=== PATIENT | female | born 1990 | race Caucasian/White ===

== ENCOUNTER 2017-02-02 07:20 | Outpatient (CLI) | payer OTHER ==
[2017-02-02] MEDS ORDERED: SODIUM CHLORIDE FLUSH 0.9% 10 ML SYRINGE IVP ONE (08:47)
[2017-02-02] MEDS ORDERED: LIDOCAINE JELLY 2% 5 ML TUBE TOP ONE (08:59)
[2017-02-02] MEDS ORDERED: DEXTROSE 5%-LACTATED RINGERS 1,000 ML IV SCH (09:00)
[2017-02-02] MEDS ORDERED: LACTATED RINGERS 500 ML IV ONE (09:15)
[2017-02-02] MEDS ORDERED: LIDOCAINE JELLY 2% 5 ML TUBE TOP PRN (10:50)
[2017-02-02] MEDS ORDERED: ONDANSETRON 4 MG/2 ML VIAL IVP ONE (11:00)
== END 2017-02-02 12:45 | disposition home or self-care (01) ==
DX: O26.892 Other specified pregnancy related conditions, second trimester (principal); K52.9 Noninfective gastroenteritis and colitis, unspecified; Z3A.21 21 weeks gestation of pregnancy
CPT/HCPCS: 80048; 81003; 85025; 99214; J3490

== ENCOUNTER 2017-06-20 07:30 | Emergency (ER) | payer OTHER ==
[2017-06-20 07:40] VITALS: BP 129/80
--- NOTE | 2017-06-20 07:53 | ED Physician Documentation ---
History of Present Illness - Stated complaint Stated Complaint: BREAST PX - Chief complaint Chief Complaint: General - Additonal information Additional information: hx from pt healthy 26 y/o f 15 d PP, full term C section 2 days after water melly received antibiotics, breast feeding 'bay has thrush and her breasts are red and very itchy not better with hydrocotisone cream no fevers breast feeding going well no other concerns her OB is Dr Peterson at [facility] Review of Systems Constitutional: denies: Fever Respiratory: denies: Cough GI: denies: Abdominal Pain : denies: Now EGA Skin: reports: Rash (breasts) PD PAST MEDICAL HISTORY - Past Surgical History 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 06/20/17 Nystatin 5 ml PO QID #200 ml 06/20/17 - Allergies Allergies/Adverse Reactions: Allergies Allergy/AdvReac Type Severity Reaction Status Date / Time No Known Drug Allergies Allergy Verified 03/27/14 14:01 - Social History Does the pt smoke?: No Smoking Status: Never smoker Does the pt drink ETOH?: Yes Does the pt have substance abuse?: No - Immunizations Immunizations are current?: Yes PD ED PE NORMAL - Vitals Vital signs reviewed: Yes - Cardiac Cardiac: RRR - Respiratory Respiratory: No respiratory distress, Clear bilaterally - Derm Derm: Other (laci aereola are erythematous, no mastiitis or breast TTP, pt states itching) Results - Vitals Vitals: Vital Signs - 24 hr 06/20/17 07:36 Temperature 36.8 C Heart Rate 71 Respiratory 12 Rate Blood Pressure 129/80 O2 Saturation 97 Oxygen O2 Source Room air Departure - Departure Disposition: 01 Home, Self Care Clinical Impression: Candidiasis of breast Condition: Good Follow-Up: LATANYA Gallardo [Provider Group] Prescriptions: Clotrimazole 1 applic TP BID #45 cream..g. Nystatin 5 ml PO QID #200 ml Comments: Stop the hydrocortisone cream - it helps the itching but may worsen the fungal infection. The first line of treatment is to apply the nystatin - same medication used for your baby - to the breasts four times a day. If that does not resolve the infection, then try the clotrimazole cream. Wipe off any medications prior to breast feeding If the nystatin and clotrimazole do not clear up the infection, please follow up with your OB - you may need to try genetian keli or even an oral antifungal called fluconazole. Be sure to thoroughly clean your breast pump parts as well Congratulations on your new baby !!
== END 2017-06-20 08:10 | disposition home or self-care (01) ==
LOC: ED 07:30
DX: B37.2 Candidiasis of skin and nail (principal)
CPT/HCPCS: 99283

== ENCOUNTER 2018-06-10 12:14 | Emergency (ER) | payer OTHER ==
--- NOTE | 2018-06-10 13:21 | ED Physician Documentation ---
History of Present Illness - Stated complaint Stated Complaint: CHEST PX - Chief complaint Chief Complaint: General - History obtained from History obtained from: Patient - History of Present Illness Timing: Today (27-year-old woman years ago had an episode of neurologic symptoms that was treated to a C6 radiculopathy on MRI. However it did not quite fit because she had nasal numbness at the time and bilateral symptoms down in the legs 2. However no other cause was found. Her symptoms went away but recurred this morning Around 7:30 AM. She developed numbness and tingling that started over the right tricep but then moved down the arm and into the left arm and up into the mandible area bilaterally as well. She has had some mild chest pain with it. Also some leg pain and cramping bilaterally. No saddle anesthesia or difficulty walking though. She says the symptoms are similar to what she had for years ago.) Review of Systems Constitutional: denies: Fever, Chills Cardiac: reports: Chest pain / pressure. 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 HEENT: Tonsil/Adenoidectomy - Present Medications Home Medications: Ambulatory Orders Medication Instructions Recorded Confirmed No Known Home Medications [No 06/10/18 06/10/18 Known Home Medications] - Allergies Allergies/Adverse Reactions: Allergies Allergy/AdvReac Type Severity Reaction Status Date / Time gadoteridol [From Prohance] Allergy Anaphylaxis Verified 06/10/18 12:21 - Social History Does the pt smoke?: No Smoking Status: Never smoker Does the pt drink ETOH?: Yes Does the pt have substance abuse?: No - Immunizations Immunizations are current?: Yes PD ED PE NORMAL - Vitals Vital signs reviewed: Yes - General General: Alert and oriented X 3, No acute distress - HEENT HEENT: PERRL, EOMI - Neck Neck: Supple, no meningeal sign, No bony TTP - Cardiac Cardiac: RRR, No murmur - Respiratory Respiratory: No respiratory distress, Clear bilaterally - Abdomen Abdomen: Soft, Non tender - Extremities Extremities: No edema, No calf tenderness / cord - Neuro Neuro: Alert and oriented X 3, 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 She has symmetric upper extremity reflexes which are brisk but normal.) Eye Opening: Spontaneous Motor: Obeys Commands Verbal: Oriented GCS Score: 15 Results - Vitals Vitals: Vital Signs - 24 hr 06/10/18 12:17 Temperature 36.0 C L Heart Rate 77 Respiratory 16 Rate Blood Pressure 122/67 O2 Saturation 98 Oxygen O2 Source Room air - EKG (time done) 1322 Rate: Rate (enter#) (68) Rhythm: NSR [place]: Normal Intervals: Normal [place] QRS: Normal Ischemia: Normal ST segments Computer interpretation: Agree with computer - Labs Labs: Laboratory Tests 06/10/18 06/10/18 06/10/18 13:43 13:45 13:45 WBC 7.4 RBC 4.69 Hgb 14.4 Hct 42.3 MCV 90.2 MCH 30.7 MCHC 34.0 RDW 13.3 Plt Count 229 MPV 8.0 Neut # (Auto) 4.8 Lymph # (Auto) 2.1 [place] # (Auto) 0.4 Eos # (Auto) 0.0 Baso # (Auto) 0.1 Absolute Nucleated RBC 0.00 Nucleated RBC % 0.1 Sodium 137 Potassium 3.6 Chloride 100 L Carbon Dioxide 28 Anion Gap 9.0 BUN 9 Creatinine 0.7 Estimated GFR (MDRD) 100 Glucose 93 Calcium 8.9 Magnesium 2.1 Total Bilirubin 0.7 AST 17 ALT 13 Alkaline Phosphatase 43 Troponin I Total Protein 7.8 Albumin 4.6 Globulin 3.2 Albumin/Globulin Ratio 1.4 Lipase 26 Urine Color YELLOW Urine Clarity CLEAR Urine pH 8.0 H Ur Specific [place] 1.010 Urine Protein NEGATIVE Urine Glucose (UA) NEGATIVE Urine Ketones NEGATIVE Urine Occult Blood NEGATIVE Urine Nitrite NEGATIVE Urine Bilirubin NEGATIVE Urine Urobilinogen 0.2 (NORMAL) Ur Leukocyte Esterase NEGATIVE Ur Microscopic Review NOT INDICATED Urine Culture Comments NOT INDICATED Urine HCG, Qual NEGATIVE 06/10/18 13:45 WBC RBC Hgb Hct MCV MCH MCHC RDW Plt Count MPV Neut # (Auto) Lymph # (Auto) [place] # (Auto) Eos # (Auto) Baso # (Auto) Absolute Nucleated RBC Nucleated RBC % Sodium Potassium Chloride Carbon Dioxide Anion Gap BUN Creatinine Estimated GFR (MDRD) Glucose Calcium Magnesium Total Bilirubin AST ALT Alkaline Phosphatase Troponin I < 0.04 Total Protein Albumin Globulin Albumin/Globulin Ratio Lipase Urine Color Urine Clarity Urine pH Ur Specific [place] Urine Protein Urine Glucose (UA) Urine Ketones Urine Occult Blood Urine Nitrite Urine Bilirubin Urine Urobilinogen Ur Leukocyte Esterase Ur Microscopic Review Urine Culture Comments Urine HCG, Qual PD MEDICAL DECISION MAKING - ED course ED course: She presents with recurrent paresthesias of unclear etiology, previously felt to be related to his C6 radiculopathy, but her symptoms and distribution are not quite typical for that. Her examination and labs are normal. Neurology follow-up was advised. - Sepsis Event Vital Signs: Vital Signs - 24 hr 06/10/18 12:17 Temperature 36.0 C L Heart Rate 77 Respiratory 16 Rate Blood Pressure 122/67 O2 Saturation 98 Oxygen O2 Source Room air Departure - Departure Disposition: 01 Home, Self Care Clinical Impression: Paresthesias Condition: Good Record reviewed to determine appropriate education?: Yes Instructions: ED Paraesthesias Comments: If symptoms are persistent [place]ist for EMG testing. Return for new or worsening symptoms.
[2018-06-10 13:55] LABS: BILIRUBIN,URINE NEGATIVE (NEGATIVE); GLUCOSE, URINE (UA) NEGATIVE (NEGATIVE); KETONES,URINE (UA) NEGATIVE (NEGATIVE); LEUKOCYTE ESTERASE, URINE NEGATIVE (NEGATIVE); NITRITE,URINE NEGATIVE (NEGATIVE); OCCULT BLOOD,URINE NEGATIVE (NEGATIVE); PROTEIN,URINE NEGATIVE (NEGATIVE); UROBILINOGEN,URINE 0.2 (NORMAL) E.U./dL (NORMAL)
[2018-06-10 13:55] LABS: BASOPHILS # (AUTO) 0.1 10^3/uL (0.0-0.1); BASOPHILS % (AUTO) 0.8 %; EOSINOPHILS % (AUTO) 0.3 %; HGB - HEMOGLOBIN 14.4 g/dL (12.0-16.0); LYMPHOCYTES # (AUTO) 2.1 10^3/uL (1.5-3.5); LYMPHOCYTES % (AUTO) 28.6 %; MEAN CORPUSCULAR HEMOGLOBIN 30.7 pg (27.0-31.0); MEAN CORPUSCULAR VOLUME 90.2 fL (81.0-99.0); MONOCYTES # (AUTO) 0.4 10^3/uL (0.0-1.0); MONOCYTES % (AUTO) 5.7 %; NEUTROPHILS # (AUTO) 4.8 10^3/uL (1.5-6.6); NEUTROPHILS % (AUTO) 64.6 %; PLT - PLATELET COUNT 229 10^3/uL (130-450); RED BLOOD COUNT 4.69 10^6/uL (4.20-5.40); RED CELL DISTRIBUTION WIDTH 13.3 % (12.0-15.0); WHITE BLOOD COUNT 7.4 x10^3/uL (4.8-10.8)
[2018-06-10 13:57] LABS: CLARITY,URINE CLEAR (CLEAR); HCG UR QUAL NEGATIVE
[2018-06-10 14:07] LABS: ALBUMIN 4.6 g/dL (3.2-5.5); ALBUMIN/GLOBULIN RATIO 1.4 (1.0-2.2); BILIRUBIN,TOTAL 0.7 mg/dL (0.2-1.0); CALCIUM 8.9 mg/dL (8.5-10.3); CREATININE 0.7 mg/dL (0.4-1.0); MAGNESIUM 2.1 mg/dL (1.7-2.8); TOTAL PROTEIN 7.8 g/dL (6.7-8.2)
--- NOTE | 2018-06-10 14:18 | XRAY Report ---
Procedure Date: 06/10/2018 Accession Number: [id number] / [id number] Procedure: XR - Chest 2 View X-Ray CPT Code: 06964 FULL RESULT: EXAM: CHEST RADIOGRAPHY EXAM DATE: 06/10/2018 02:12 PM. CLINICAL HISTORY: Chest pain, wait for preg test. COMPARISON: None. TECHNIQUE: 2 views. FINDINGS: Lungs/Pleura: Clear. No effusion or pneumothorax. Mediastinum: Heart and mediastinal contours are unremarkable. Upper lobe vessels not distended. Other: None. IMPRESSION: Normal 2-view chest radiography. [facility]
[2018-06-10 14:34] VITALS: BP 126/70
== END 2018-06-10 14:33 | disposition home or self-care (01) ==
LOC: ED 12:14
DX: R20.2 Paresthesia of skin (principal)
CPT/HCPCS: 36415; 71046; 80053; 81001; 81003; 81025; 83690; 83735; 84484; 85025; 87086; 93005; 99283